=== PATIENT | male | born 1955 | race Caucasian/White ===

== ENCOUNTER 2020-04-10 17:20 | Emergency (ER) | payer OTHER ==
[2020-04-10] MEDS ORDERED: LORazepam 2 MG/ML SDV VIAL ONE (17:39)
[2020-04-10 17:45] VITALS: BMI 34.9
--- NOTE | 2020-04-10 18:19 | PDOC ---
History of Present Illness - General Chief Complaint: Seizure Stated Complaint: SEIZURE Time Seen by Provider: 04/10/20 17:47 - History of Present Illness Initial Comments: 04/10/20 18:11 65yo male with PMH of epilepsy presents following a witnessed seizure at home. Patient states he got almost no sleep last night and felt odd throughout the day. He cam home and lay on the bed. His reports that she left him on the bed and found him on the floor having full-body jerking movements. Patient reports history of grand mal seizures, last in 2014. He says lack of sleep is a trigger. Complains of palpitations. Denies tongue biting or loss of urine. Per EMS and , patient became combative and was put in 4-point restrains. Per , patient looks a bit "down" and confused, not baseline. ROS GENERAL/CONSTITUTIONAL: No fever or chills. No weakness. HEAD, EYES, EARS, NOSE AND THROAT: No change in vision. No ear pain or discharge. No sore throat. CARDIOVASCULAR: No chest pain or shortness of breath. palpitations RESPIRATORY: No cough, wheezing, or hemoptysis. GASTROINTESTINAL: No nausea, vomiting, diarrhea or constipation. GENITOURINARY: No dysuria, frequency, or change in urination. MUSCULOSKELETAL: No joint or muscle swelling or pain. No neck or back pain. SKIN: No rash NEUROLOGIC: seizure ENDOCRINE: No increased thirst. No abnormal weight change HEMATOLOGIC/LYMPHATIC: No anemia, easy bleeding, or history of blood clots. ALLERGIC/IMMUNOLOGIC: No hives or skin allergy. PE GENERAL: Awake, alert, and fully oriented, in no acute distress. lethargic, used an incorrect word several times, tremulous HEAD: No signs of trauma, normocephalic, atraumatic EYES: PERRLA, EOMI, sclera anicteric, conjunctiva clear ENT: Auricles normal inspection, hearing grossly normal, nares patent, oropharynx clear without exudates. dry mucosa NECK: Normal ROM, supple, no lymphadenopathy, JVD, or masses LUNGS: No distress, speaks full sentences, clear to auscultation bilaterally HEART: Regular rate and rhythm, normal S1 and S2, no murmurs, rubs or gallops, peripheral pulses normal and equal bilaterally. ABDOMEN: Soft, nontender, normoactive bowel sounds. No guarding, no rebound. No masses EXTREMITIES : Normal inspection, Normal range of motion, no edema. No clubbing or cyanosis. NEUROLOGICAL: Cranial nerves II through XII grossly intact. Normal speech, no focal sensorimotor deficits, no clonus SKIN: Warm, Dry. red streaks on wrists and ankles, likely from restraints Vital Signs Temp Pulse Resp BP Pulse Ox 98 F 125 H 20 150/100 96 04/10/20 17:43 04/10/20 17:43 04/10/20 17:43 04/10/20 17:43 04/10/20 17:43 MDM: 65yo male with PMH of epilepsy presents following a witnessed seizure at home, typical of his past seizures (last in 2014) and likely triggered by lack of sleep. His is tachycardic, hypertensive, tremulous, dry mucous membranes, no clonus, normal pupils, and normal bowel sounds. DDx includes metabolic derangement, infection, sub-theraputic drug levels, or from a toxicological cause. Tachycardia secondary to dehydration vs. hyperthyroid vs. tox. -EKG -CBC, CMP, lamotrigine and topirimate levels, TSH and free T4, alcohol, u-tox -1000ml NS -2mg ativan IV 04/10/20 18:48 EKG: sinus tachycardia, rate 125, normal axis and intervals, no ischemic ST-T changes 04/10/20 18:59 Signed out to night team. Pending labs and clinical status Past History - Medical History Allergies/Adverse Reactions: Allergies Allergy/AdvReac Type Severity Reaction Status Date / Time Sulfa (Sulfonamide Allergy Verified 04/10/20 17:45 Antibiotics) divalproex sodium AdvReac Diarrhea, Verified 04/10/20 17:45 [From Depakote] hair loss, bad dreams, not effective Home Medications: Ambulatory Orders Finasteride [Propecia] 1 mg PO DAILY tablet 07/26/12 Vidalia-3 Fatty Acids/Fish Oil [Vidalia-3 1,000 Mg Softgel] 1 each PO BID capsule 07/26/12 Ubidecarenone [Co Q-10] 100 mg PO BID capsule 07/26/12 Atorvastatin Ca [Lipitor] 40 mg PO HS 12/27/13 Cephalexin [Keflex] 500 mg PO QID #20 capsule 09/28/14 Finasteride [Propecia] 1 mg PO DAILY 09/28/14 Terbinafine HCl [Lamisil] 350 mg PO DAILY 09/28/14 Clonazepam 0.125 mg PO HS tablet 08/12/15 Topiramate 100 mg PO ASDIR tablet 08/12/15 Lamotrigine 150 mg PO BID tablet 08/17/16 l-Mefol/A-Cyst/Meb12/Algal Oil [Cerefolin Nac Caplet] 1 each PO DAILY tablet 08/17/16 COPD: No Disorders: Yes (BPH) Hypercholesterolemia: Yes Psychiatric Problems: Yes (anxiety) Seizures: Yes (grand-mal) - Surgical History Abdominal Surgery: Yes (removal of lymhphoma in abdomen) Orthopedic Surgery: Yes (right shoulder arthoscopy) - Psycho-Social/Smoking History Smoking Status: No Smoking History: Smoker current status UNK Have you smoked in the past 12 months: No Number of Cigarettes Smoked Daily: 0 Information on smoking cessation initiated: No - Substance Abuse Hx (Audit-C & DAST Scrn) How often the patient has a drink containing alcohol: Never Score: In Men: 4 or > Positive; In Women: 3 or > Positive: 0 Screen Result (Pos requires Nsg. Audit-10AR): Negative In the last yr the pt used illegal drug/Rx for NonMed reason: No Score: Yes response is considered Positive: 0 Screen Result (Positive result requires Nsg. DAST-10): Negative *Physical Exam - Vital Signs Last Vital Signs Temp Pulse Resp BP Pulse Ox 98 F 125 H 20 150/100 96 04/10/20 17:43 04/10/20 17:43 04/10/20 17:43 04/10/20 17:43 04/10/20 17:43 ED Treatment Course - LABORATORY CBC & Chemistry Diagram: 04/10/20 17:50 04/10/20 17:50 Discharge - Discharge Information Problems reviewed: Yes Clinical Impression/Diagnosis: Seizure Qualifiers: Convulsion type: unspecified Qualified Code(s): R56.9 - Unspecified convulsions - Follow up/Referral Referrals: Lizandro Shaw MD [Primary Care Provider] - - Patient Discharge Instructions Patient Printed Discharge Instructions: DI for Seizure Disorder -- Adult Additional Instructions: You were seen in the ER after you had a seizure at home. Please follow up with your primary doctor and neurologist within three days. Please return to the ER for fever, chest pain, difficulty breathing, or concerning symptoms - Post Discharge Activity
[2020-04-10] MEDS ORDERED: SODIUM CHLORIDE 0.9% 500 ML INFUS.BAG IV ONE (18:27)
[2020-04-10 18:39] LABS: BASO % 0.4 % (0-2.0); EOS % 0.2 % (0-4.5); HEMATOCRIT 45.8 % (35.4-49); HEMOGLOBIN 15.6 GM/dL (11.7-16.9); LYMPH % 20.7 % (8-40); MCH 30.5 pg (25.7-33.7); MCHC 34.1 g/dl (32.0-35.9); MEAN CELL VOLUME 89.7 fl (80-96); MEAN PLT VOLUME 8.5 fl (7.5-11.1); MONO % 2.9 % (3.8-10.2); NEUT % 75.8 % (42.8-82.8); PLATELET COUNT 375 K/MM3 (134-434); WHITE BLOOD COUNT 12.4 K/mm3 (4.0-10.0)
--- NOTE | 2020-04-10 18:59 | PDOC ---
Documentation entered by Farzana Aguilar SCRIBE, acting as scribe for Gissel Granado MD. Gissel Granado MD: This documentation has been prepared by the florencioibeJeff Ana, SCRIBE, under my direction and personally reviewed by me in its entirety. I confirm that the documentation accurately reflects all work, treatment, procedures, and medical decision making performed by me. 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 today his witnessed a seizure, found him on floor seizure like activity. pt states his usual seizure trigger is insomnia. pt has been having a lot of insomnia recently due to stress, uplate working then can't sleep. denies drug use. or alcohol use. denies using stimulants or cocaine to stay awake. states he takes lorazepam, denies taking more than prescribed. seizure meds: lamotrigine, clonazepen 0.25, topomax, atorvastatin. Allergies: sulfonamide antibiotics and divalproex sodium 04/10/20 18:43 04/10/20 19:33 - Physicial Exam PE: 04/10/20 18:48 pt awake alert tremulous, dry mucous membranes. heart tachycardic, regular no mrg abd soft nt nd lungs clear bilat ext wwp. no rash. alert oriented x 3. normal bowel sounds, no clonus normal pupils. 04/10/20 18:55 - Medical Decision Making 04/10/20 18:50 65 yo male h/o seizure, here with seizure disorder. on exam pt tremulous, tachycardic, dry mucous membranes. differential includes sympathomimetic, anticholinergic syndrome, etoh or benzo withdrawl. post ictal state. plan 2mg ativan given IV, ivf. will add TSH r/o hyperthyroid, pt wanting to leave AMA, encouraged to stay and be observed for possible recurrent seizure. Heart Score/ECG Review #1 General ECG Interpretation: Sinus Rhythm, Normal Intervals, No acute ischemic changes Compared to previous ECG there are: Other (sinus tachycardia. 125) Discharge - Discharge Information Problems reviewed: Yes Clinical Impression/Diagnosis: Seizure Qualifiers: Convulsion type: unspecified Qualified Code(s): R56.9 - Unspecified convulsions - Follow up/Referral Referrals: Lizandro Shaw MD [Primary Care Provider] - - Patient Discharge Instructions Additional Instructions: You were seen in the ER after you had a seizure at home. Please follow up with your primary doctor and neurologist within three days. Please return to the ER for fever, chest pain, difficulty breathing, or concerning symptoms - Post Discharge Activity
[2020-04-10 19:11] LABS: ALBUMIN 4.5 g/dl (3.4-5.0); ALK PHOS 117 U/L (45-117); ANION GAP 17 MMOL/L (8-16); BILIRUBIN,TOTAL 0.3 mg/dL (0.2-1); BLOOD UREA NITROGEN 17.3 mg/dL (7-18); CHLORIDE 105 mmol/L (98-107); CO2 18 mmol/L (21-32); CREATININE 1.5 mg/dL (0.55-1.3); GLUCOSE,RANDOM 217 mg/dL (74-106); POTASSIUM 3.8 mmol/L (3.5-5.1); SGOT/AST 34 U/L (15-37); SGPT/ALT 54 U/L (13-61); SODIUM 140 mmol/L (136-145); TOT PROT 7.9 g/dl (6.4-8.2)
--- NOTE | 2020-04-10 19:48 | PDOC ---
*Physical Exam - Vital Signs Last Vital Signs Temp Pulse Resp BP Pulse Ox 98 F 125 H 20 150/100 96 04/10/20 17:43 04/10/20 17:43 04/10/20 17:43 04/10/20 17:43 04/10/20 17:43 - Physical Exam 04/10/20 19:[address] Xie S - 65yoM w/ seizure B -epilepsy dx on Rx. A - sleeping when I walked into room - was able to arouse with painful stimuli. States he feels tired - tongue fasiculating, arms shaking, mucous membranes dry. R - await remainder of labs, d/c home? 04/10/20 19:53 04/10/20 20:28 Reassessment: pt requesting to go home. He states "I know how this goes - having a seizure. I'm going to just get into bed and do nothing for two days." ED Treatment Course - LABORATORY CBC & Chemistry Diagram: 04/10/20 17:50 04/10/20 17:50 - ADDITIONAL ORDERS Additional order review: Laboratory Results 04/10/20 17:50 Sodium 140 Potassium 3.8 Chloride 105 Carbon Dioxide 18 L Anion Gap 17 H BUN 17.3 Creatinine 1.5 H Est GFR (CKD-EPI)AfAm 56.61 Est GFR (CKD-EPI)NonAf 48.84 Random Glucose 217 H Calcium 9.0 Total Bilirubin 0.3 AST 34 ALT 54 Alkaline Phosphatase 117 Total Protein 7.9 Albumin 4.5 TSH 1.55 D Alcohol, Quantitative < 3 04/10/20 17:50 RBC 5.10 MCV 89.7 MCHC 34.1 RDW 13.0 MPV 8.5 Neutrophils % 75.8 Lymphocytes % 20.7 Monocytes % 2.9 L Eosinophils % 0.2 Basophils % 0.4 - Medications Given in the ED: ED Medications Discontinued Medications Generic Name Dose Route Start Last Admin Trade Name Freq PRN Reason Stop Dose Admin Lorazepam 2 mg 04/10/20 18:43 04/10/20 18:58 Ativan Injection - IVPUSH 04/10/20 18:44 2 mg ONCE ONE Administration Sodium Chloride 1,000 ml 04/10/20 18:27 04/10/20 18:37 Normal Saline - IV 04/10/20 18:28 1,000 ml ONCE ONE Administration Discharge - Discharge Information Problems reviewed: Yes Clinical Impression/Diagnosis: Seizure Qualifiers: Convulsion type: unspecified Qualified Code(s): R56.9 - Unspecified convulsions - Admission No - Follow up/Referral Referrals: Lizandro Shaw MD [Primary Care Provider] - - Patient Discharge Instructions Patient Printed Discharge Instructions: DI for Seizure Disorder -- Adult Additional Instructions: You were seen in the ER after you had a seizure at home. Please follow up with your primary doctor and neurologist within three days. Please return to the ER for fever, chest pain, difficulty breathing, or concerning symptoms - Post Discharge Activity
[2020-04-10 20:54] VITALS: BP 133/90; PULSE 86; TEMP 98.2
--- NOTE | 2020-04-15 17:04 | EKG ---
Test Reason : Blood Pressure : / mmHG Vent. Rate : 125 BPM Atrial Rate : 125 BPM P-R Int : 166 ms QRS Dur : 100 ms QT Int : 306 ms P-R-T Axes : 038 069 004 degrees QTc Int : 441 ms SINUS TACHYCARDIA POSSIBLE LEFT ATRIAL ENLARGEMENT T WAVE ABNORMALITY, CONSIDER INFERIOR ISCHEMIA ABNORMAL ECG NO PREVIOUS ECGS AVAILABLE Confirmed by GABI PABLO MD ([id number]) on 04/15/2020 5:04:32 PM Referred By: Confirmed By:GABI PABLO MD
== END 2020-04-10 21:05 | disposition home or self-care (01) ==
LOC: JER 17:20
PROC: 3E033NZ Introduction of Analgesics, Hypnotics, Sedatives into Peripheral Vein, Percutaneous Approach (ICD-10-PCS; principal; 2020-04-10)
DX: R56.9 Unspecified convulsions (principal)
CPT/HCPCS: 36415; 80053; 80175; 80201; 80307; 84439; 84443; 85025; 93005; 93010; 99284-25

== ENCOUNTER 2021-02-02 07:39 | Emergency (ER) | payer OTHER ==
[2021-02-02 07:58] VITALS: BP 117/86; PULSE 57; TEMP 98.7; BMI 25.0
[2021-02-02] MEDS ORDERED: DEXAMETHASONE SOD PHOSPHATE 4 MG/1 ML VIAL IVPUSH ONE (08:02)
[2021-02-02] MEDS ORDERED: DEXAMETHASONE SOD PHOSPHATE 4 MG/1 ML VIAL IM ONE (08:05)
[2021-02-02] MEDS ORDERED: DEXAMETHASONE SOD PHOSPHATE 4 MG/1 ML VIAL ONE (08:07)
== END 2021-02-02 08:31 | disposition home or self-care (01) ==
LOC: FER 07:39
PROC: 3E0233Z Introduction of Anti-inflammatory into Muscle, Percutaneous Approach (ICD-10-PCS; principal; 2021-02-02)
DX: L25.9 Unspecified contact dermatitis, unspecified cause (principal)
CPT/HCPCS: 99284-25

== ENCOUNTER 2021-02-18 09:58 | Emergency (ER) | payer OTHER ==
[2021-02-19 14:08] LABS: SARS-CoV-2 NAA Not Detected (Not Detected)
== END 2021-02-18 11:53 | disposition home or self-care (01) ==
LOC: JVIRT 09:58
DX: Z20.822 Contact with and (suspected) exposure to COVID-19 (principal)
CPT/HCPCS: C9803; Q3014-GT; U0003; U0005

== ENCOUNTER 2021-04-27 08:51 | Emergency (ER) | payer OTHER ==
[2021-04-27 08:56] VITALS: BP 141/93; PULSE 60; TEMP 98; BMI 26.9
== END 2021-04-27 09:09 | disposition home or self-care (01) ==
LOC: FER 08:51
DX: H60.11 Cellulitis of right external ear (principal)
CPT/HCPCS: 99283-25